=== PATIENT | male | born 1955 | race Caucasian/White ===

== ENCOUNTER → 2017-08-07 | Outpatient (CLI) | payer OTHER ==
[~2017-08-07] MED LIST: ACET-1927 PO; ALL300 PO; ASPI-715 PO; ATR10 PO; CALC-797 PO; CLIN300C91 PO; FLUT16SP20 NS; GLUC-234 PO; IBUP-1618 PO; LORA10CA3 PO; MULT-772 PO; OMEG-26 PO; PSYP PO; SENN8.6T5 PO; [UNRECOGNIZED DRUG - CODE] IM; [UNRECOGNIZED DRUG - CODE] PO
--- NOTE | 2017-08-07 19:13 | RADIOLOGY IMAGING REPORT ---
[place] [facility] [place] NAME: Hank Galan : 1955 MR: [id number] V: [id number] EXAM DATE: ORDERING PHYSICIAN: LAN PALACIOS TECHNOLOGIST: Location: [facility] Patient: Hank Galan : 1955 Visit/Account:[id number] Date of Sevice: 08/07/2017 Technique: PELVIS HISTORY: Joint pain Comparison studies: None FINDINGS: There is no acute fracture. The alignment of the femoroacetabular joints are maintained. Th ere are degenerative changes at the lumbosacral junction. IMPRESSION: 1. Degenerative changes at the lumbosacral junction. Report Dictated By: Porfirio Hayes DO at 08/07/2017 7:08 PM Report E-Signed By: Porfirio Hayes DO at 08/07/2017 7:10 PM WSN:[id number]
== END ==
LOC: RAD 17:00
PROVIDERS: ATTEND Family Medicine
DX: M47.897 Other spondylosis, lumbosacral region (principal)
CPT/HCPCS: 72170